=== PATIENT | male | born 1970 | race Caucasian/White ===

== ENCOUNTER 2022-06-28 13:56 | Outpatient (CLI) | payer BC | END 2022-06-28 14:12 | LOC: SLEEP 13:56 | PROVIDERS: ATTEND Otolaryngology Otolaryngology/Facial Plastic Surgery | DX: G47.33 Obstructive sleep apnea (adult) (pediatric) (principal); R63.4 Abnormal weight loss | CPT/HCPCS: G0399 ==

== ENCOUNTER 2022-08-15 10:24 | Outpatient (CLI) | payer BC ==
[~2022-08-15] VITALS: Ht 188 cm; Wt 107.9 kg
== END 2022-08-15 14:40 | disposition home or self-care (01) ==
LOC: PREOP 10:24
PROVIDERS: ATTEND Surgery
DX: Z01.818 Encounter for other preprocedural examination (principal)

== ENCOUNTER 2022-08-16 09:15 | Day surgery (SDC) | payer BC ==
[~2022-08-16] VITALS: Ht 188 cm; Wt 107.9 kg
[2022-08-16] MEDS ORDERED: MIDAZOLAM 2 MG/2 ML (VERSED) VIAL ONE (09:22)
[2022-08-16] MEDS ORDERED: PROPOFOL INJECTION 50 ML IV ONE ×2 (09:23→10:45)
[2022-08-16 09:35] VITALS: BP 144/88
[2022-08-16] MEDS ORDERED: LACTATED RINGERS 1,000 ML IV STA (09:41)
[2022-08-16] MEDS ORDERED: LIDOCAINE JELLY 2% 6 ML SYRINGE MM PRN (09:45)
[2022-08-16] MEDS ORDERED: ONDANSETRON 4 MG (ZOFRAN) ORAL DISSOLVE TAB PO PRN (10:30)
[2022-08-16] MEDS ORDERED: ONDANSETRON 4 MG/2 ML (SDV) Z0FRAN IVP PRN (10:30)
--- NOTE | 2022-08-16 10:30 | Progress Note-Pre Operative ---
Pre-Operative Progress Note Date of Available H&P: Aug 16, 2022 Date H&P Reviewed: Aug 16, 2022 Time H&P Reviewed: 09:30 History & Physical: No changes noted Pre-Operative Diagnosis: screening o ZULAY SHEA MD Aug 16, 2022 10:30
--- NOTE | 2022-08-16 10:31 | Discharge Inst-Surgical ---
D/C Lap Instructions-MONSE Follow Up Activity as tolerated High Fiber Diet 25g or more per day Avoid Alcohol, Caffeine, Spicy [place] and Acid foods. Drink 64 fluid oz or more of fluids per day. Symptoms to Report: Fever over 101 degree F, Nausea/Vomiting If any problems/questions: Contact your physician or go to Emergency Room ZULAY SHEA MD Aug 16, 2022 10:31
[2022-08-16 10:50] VITALS: BP 106/67
[2022-08-16 10:55] VITALS: BP 108/60
[2022-08-16 11:00] VITALS: BP 109/68
--- NOTE | 2022-08-16 11:11 | Progress Note-Post Operative ---
Post-Operative Progess Note Surgeon (s)/Outdoor Advertising Leasing Agent (s) Surgeon ZULAY SHEA MD Outdoor Advertising Leasing Agent: none Pre-Operative Diagnosis screening colo Post-Operative Diagnosis normal rectal and colon Procedure & Operative Findings Date of Procedure 08/16/22 Procedure Performed/Findings colonoscopy Anesthesia Type mac Estimated Blood Loss Estimated blood loss (mL): minimal Specimens/Packing Specimens Removed none ZULAY SHEA MD Aug 16, 2022 11:11
[2022-08-16 11:15] VITALS: BP 109/68
--- NOTE | 2022-08-16 14:28 | Anesthesia-General Post-Op ---
MAC Patient Condition Mental Status/LOC: Same as Preop Cardiovascular: Satisfactory Nausea/Vomiting: Absent Respiratory: Satisfactory Pain: Controlled Complications: Absent Post Op Complications Complications None Follow Up Care/Instructions Patient Instructions None needed. Anesthesiology Discharge Order Discharge Order Patient is doing well, no complaints, stable vital signs, no apparent adverse anesthesia problems. No complications reported per nursing. MUSA MAYORGA CRNA Aug 16, 2022 14:28
--- NOTE | 2022-08-16 19:27 | OPERATIVE REPORT ---
DATE OF SERVICE: 08/16/2022 ATTENDING PRIMARY CARE PHYSICIAN: Dr. Marianna Portillo. PREOPERATIVE DIAGNOSIS: Screening colonoscopy. POSTOPERATIVE DIAGNOSIS: Normal colon and rectum. PROCEDURE: Colonoscopy. SURGEON: Zulay Shea MD. ANESTHESIA: Monitored anesthesia care. ESTIMATED BLOOD LOSS: Minimal. FINDINGS: Normal colon and rectum. DISPOSITION: The patient tolerated the procedure well. INDICATIONS: The patient is a 52-year-old male referred over to us for screening colonoscopy. He has not had a colonoscopy up to this point in his life. He states that he is otherwise doing well, does not report any major issues with diarrhea nor constipation as well as no red blood per rectum nor any dark tarry stools. He also does not report any family history of colon cancer. DESCRIPTION OF PROCEDURE: The patient was brought to the endoscopy suite, laid in the left lateral decubitus position. After adequate IV pain and sedative medications and monitored anesthesia care, a digital rectal examination was performed, which did not reveal any significant hemorrhoids. Normal sphincter tone and there were no palpable masses. Prostate gland was palpable and appeared normal. The endoscope was then intubated into the anus and the rectum insufflated. The endoscope was then advanced through the valves of [place] of the rectum with no polyps or any neoplasms identified. Through the sigmoid colon, no diverticulosis identified. We then proceeded through the remainder of the descending, transverse and ascending colon to the cecum, which appeared normal with no polyps or any neoplasms identified. The endoscope was then slowly withdrawn while taking a second look and suctioning of residual air with no additional findings. The patient tolerated the procedure well. We will recommend continued medical management with a high-fiber diet with a fiber supplement, which should equal or exceed 30 grams daily as well as significant amounts of water to promote soft consistency stools on a daily basis and if he is asymptomatic, he does not need another colonoscopy for another 10 years. Job ID: [id number] DocumentID: [id number] Dictated Date: 08/16/2022 10:56:13 [employer] Pump Tender Date: 08/16/2022 19:26:27 Dictated By: ZULAY SHEA MD
== END 2022-08-16 11:30 | disposition home or self-care (01) ==
LOC: ENDO 09:15
PROVIDERS: ATTEND Surgery
DX: Z12.11 Encounter for screening for malignant neoplasm of colon (principal); Z28.310 Unvaccinated for COVID-19